=== PATIENT | male | born 1965 ===

== ENCOUNTER 2021-02-02 14:22 | Outpatient (CLI) | payer OTHER | END 2021-02-02 14:23 | disposition short-term general hospital (02) | LOC: EMS 14:22 | DX: S82.892A Other fracture of left lower leg, initial encounter for closed fracture (principal); M54.59 Other low back pain; W12.XXXA Fall on and from scaffolding, initial encounter; Y93.H9 Activity, other involving exterior property and land maintenance, building and construction; Y92.008 Other place in unspecified non-institutional (private) residence as the place of occurrence of the external cause | CPT/HCPCS: A0425; A0427 ==